=== PATIENT | male | born 1980 | race African-American/Black ===

== ENCOUNTER 2016-08-25 01:25 | Emergency (ER) | payer SELFPAY ==
--- NOTE | 2016-08-25 02:05 | ED ---
Wound/Laceration HPI - General Chief Complaint: Wound/Laceration Stated Complaint: ETOH-lacs Time Seen by Provider: 08/25/16 01:31 Source: patient, EMS, RN notes reviewed Mode of arrival: EMS - History of Present Illness Initial Comments: Patient 35-year-old male presents to the emergency room for evaluation of left arm lacerations. Patient states he was at his girlfriend's house, at a democrat and he tripped and fell into the glass shower door. Patient denies loss of consciousness, head trauma. Patient states when he stood up he noticed blood running down his arm. Patient states he noticed 2 lacerations on his left forearm. Patient states he was losing a lot of blood so they called EMS. Patient states his last tetanus vaccine was within the last 5 years. Patient denies being on any blood thinners. Patient denies any numbness or tingling in his fingers. Patient states he still is full range of motion of his wrist and hand. Patient states he is having pain at the laceration area. Patient denies any other injuries during incident. - Related Data Allergies Allergy/AdvReac Type Severity Reaction Status Date / Time No Known Allergies Allergy Verified 08/25/16 01:41 Review of Systems ROS Statement: Those systems with pertinent positive or pertinent negative responses have been documented in the HPI. ROS Other: All systems not noted in ROS Statement are negative. Past Medical History Past Medical History: No Reported History History of Any Multi-Drug Resistant Organisms: None Reported Past Surgical History: No Surgical Hx Reported Past Psychological History: No Psychological Hx Reported Smoking Status: Unknown if ever smoked Past Alcohol Use History: Occasional Past Drug Use History: None Reported General Exam - General Exam Comments Initial Comments: Sitting in exam room in no acute distress. General appearance: alert, in no apparent distress Head exam: Present: atraumatic, normocephalic, normal inspection Eye exam: Present: normal appearance ENT exam: Present: normal exam Neck exam: Present: normal inspection Respiratory exam: Present: normal lung sounds bilaterally. Absent: respiratory distress Cardiovascular Exam: Present: regular rate, normal rhythm, normal heart sounds Left Hand Wrist exam: Present: full ROM, tenderness (Palpating over the laceration areas), laceration (5cm laceration on the mid-volar portion of the foream and 3cm flap laceration on the distal ulnar portion ) Neuro motor exam: Present: wrist extension intact, thumb opposition intact, thumb IP flexion intact, thumb adduction intact, fingers 2-5 abduction intact Vascular: Present: normal capillary refill (Capillary refill less than 2 seconds ), radial pulse (2+), ulnar pulse (2+) Back exam: Present: normal inspection Neurological exam: Present: alert, oriented X3, CN II-XII intact, normal gait Psychiatric exam: Present: normal affect, normal mood Skin exam: Present: warm, dry, normal color. Absent: rash Course Vital Signs 08/25/16 08/25/16 01:36 04:42 Temperature 97.2 F L 98.1 F Pulse Rate 73 68 Respiratory 16 18 Rate Blood Pressure 147/64 152/67 O2 Sat by Pulse 97 98 Oximetry Procedures - Laceration Laceration #1 Consent Obtained: verbal consent Indication: laceration Site: other (Left forearm) Size (cm): 5 Description: irregular Depth: simple, single layer Anesthetic Used: lidocaine 1% Anesthesia Technique: local infiltration Amount (mls): 3 Pre-repair: wound explored, irrigated extensively Type of Sutures: nylon Size of Sutures: 5-0 Number of Sutures: 16 Technique: simple, interrupted Patient Tolerated Procedure: well, no complications Laceration #2 Consent Obtained: verbal consent Indication: laceration Site: other (Left forearm) Size (cm): 3 Description: flap, irregular Depth: simple, single layer Anesthesia Technique: local infiltration Amount (mls): 2 Pre-repair: wound explored, irrigated extensively Type of Sutures: nylon Size of Sutures: 5-0 Number of Sutures: 9 Technique: simple, interrupted Patient Tolerated Procedure: well, no complications - Orthopedic Splinting/Casting Injury #1 Side: left Upper Extremity Injury Location: wrist Upper Extremity Immobilizer: volar splint (Short arm OCL volar splint placed. 3 x 35". Neurovascular function assessed and intact.) Medical Decision Making - Medical Decision Making Patient is a 35-year-old male presents to the emergency room for evaluation of left forearm lacerations after fall incident. Patient denies any other injuries , head trauma, headache, dizziness. Lacerations repaired with sutures. Left wrist x-ray: No acute fractures seen. Small density along the volar soft tissues just proximal to the wrist, small subchondral cyst or erosion within the distal scaphoid and distal capitate. Acute nondisplaced fracture me initially be radiologically occult, and short-term follow-up could be considered if concern or symptoms persist (per radiology). Patient placed in a left short arm OCL splint and advised to follow-up with brand marketing specialist for reevaluation. Patient states he understands everything that was discussed with him. Return parameters discussed. Case discussed with Dr. Nixon. - Radiology Data Radiology results: report reviewed, image reviewed Disposition Clinical Impression: Laceration Disposition: HOME SELF-CARE Condition: Good Instructions: Care For Your Stitches (ED), Laceration (ED) Additional Instructions: Do not get splint wet. Do not remove splint until follow-up with brand marketing specialist. Please follow-up with brand marketing specialist in 24-48 hours for reevaluation. Take Tylenol or Motrin as needed for pain. Please return in 10- 12 days for suture removal. If any new symptom arises or symptoms worsen, return to ER as soon as possible. Referrals: None,Stated [Primary Care Provider] - 1-2 days Warren Barry DO [Doctor of Osteopathic Medicine] - 1-2 days Time of Disposition: 04:26
--- NOTE | 2016-08-25 02:48 | XR ---
EXAM: XR Right Wrist Complete, 3 or More Views. CLINICAL HISTORY: Reason: Pain TECHNIQUE: Frontal, lateral and oblique views of the right wrist. Additional scaphoid view obtained. COMPARISON: No relevant prior studies available. FINDINGS: Bones: No acute fracture is seen. Joints: Subchondral cyst formation versus erosion within the distal scaphoid, with perhaps a second along the radial margin of the distal capitate, presumably on an arthritic basis. No dislocation. Soft tissues: Small focus of increased density overlies the volar soft tissues just proximal to the wrist as only seen on the lateral view where it measures 10 mm in length, may be external to the patient or a small hematoma assuming no evidence of penetrating trauma to suggest a foreign body. IMPRESSION: 1. No acute fracture is seen. 2. Small density along the volar soft tissues just proximal to the wrist, as above. 3. Small subchondral cyst or erosion within the distal scaphoid and distal capitate. Comment: Acute nondisplaced fractures may initially be radiographically occult, and short-term follow-up could be considered if concern or symptoms persist.
[2016-08-25 04:43] VITALS: BP 152/67; PULSE 68; RESP 18; TEMP 98.1
== END 2016-08-25 04:51 | disposition home or self-care (01) ==
LOC: EC 01:25
DX: S51.812A Laceration without foreign body of left forearm, initial encounter (principal); W01.110A Fall on same level from slipping, tripping and stumbling with subsequent striking against sharp glass, initial encounter; Y92.009 Unspecified place in unspecified non-institutional (private) residence as the place of occurrence of the external cause
CPT/HCPCS: 12004; 29125; 82075; 99283